=== PATIENT | female | born 1965 | race Caucasian/White ===

== ENCOUNTER → 2024-03-11 10:16 | Outpatient (REF) | payer OTHER, SELFPAY | LOC: RAD 10:16 | PROVIDERS: ATTENDING PHYSICIAN Family Medicine | DX: M25.562 Pain in left knee (principal) | CPT/HCPCS: 73564; 73590 ==

== ENCOUNTER → 2024-07-22 12:04 | Outpatient (REF) | payer OTHER, SELFPAY | LOC: WDC 12:04 | PROVIDERS: ATTENDING PHYSICIAN Nurse Practitioner Adult Health; FAMILY PHYSICIAN Family Medicine | DX: Z12.31 Encounter for screening mammogram for malignant neoplasm of breast (principal) | CPT/HCPCS: 77063; 77067 ==

== ENCOUNTER 2024-07-22 12:23 | Emergency (ER) | payer OTHER, SELFPAY ==
[2024-07-22] VITALS (9 sets, daily range): BP systolic 132–164; BP diastolic 77–96; PULSE 76–97; BMI 36.0
--- NOTE | 2024-07-22 12:44 | ED.GENMED ---
History of Present Illness
<Georgina Small PA-C - Last Filed: 07/22/24 20:59>
General
Chief Complaint: Dizziness
Source: patient
Exam Limitations: none
Time Seen by Provider: 07/22/24 12:41
Nursing documentation reviewed up to this point in time: agreed with
History of Present Illness
History of Present Illness:
This is a 58-year-old female with a past medical history of anxiety previously on Pristiq presents emergency department today with concerns of dizziness, lightheadedness. This started yesterday. Patient states that she was walking around her house
when the symptoms started. Patient states that she went to sit down and the symptoms resolved slowly on their own. Patient states that sometimes the symptoms do come on when she is sitting as well but notices the symptoms more when she walks. She
is unable to identify trigger to her symptoms. She denies any recent head or neck trauma. Denies any headaches or neck pain. She states that a few months ago she had something similar which resolved on its own and only lasted a day. She also
notes intermittent left-sided chest pain for the past few days. Denies any shortness of breath. Denies dysphagia, dysarthria,diplopia. Denies any fevers or chills or any sick contacts. Denies any visual changes. Denies any pain or swelling in her
legs, any rectal bleeding, any dark or tarry stools. Patient's not take a blood thinner. Patient is no history of cardiac disease. Patient states that she was going to her mammogram at the hospital today and noticed her symptoms again and decided
to report to the emergency department for further evaluation.
Past History
<Georgina Small PA-C - Last Filed: 07/22/24 20:59>
Past History
ED Past Medical History: Psychiatric (Anxiety) and Other (Cellulitis, )
ED Past Surgical History: Cholecystectomy and Orthopedic (Left knee replacement, tendonitis right wrist)
Social History
Tobacco: Former smoker
Alcohol: Occasional
Drug: None
Personal:
Living: alone
Employment: Employed
Family History
Family History: Hypertension; Negative Sudden
Review of Systems
<Georgina Small PA-C - Last Filed: 07/22/24 20:59>
Review of Systems
All Other Systems: ROS reviewed and negative except as documented in HPI and ROS
Phy Exam
<Georgina Small PA-C - Last Filed: 07/22/24 20:59>
Physical Exam
Physical Exam:
General: Patient is well appearing and in no acute distress; non-toxic
Skin: Warm and dry, no rashes or lesions
Head: Normocephalic, atraumatic
Eyes: Sclera non-icteric. EOMs intact. No nystagmus.
Cardiac: Regular rate and rhythm, no murmurs
Peripheral Vascular: No lower extremity swelling or edema. 2+ radial pulses bilaterally
Pulm: Normal respiratory effort, no wheezes, rales, or rhonchi
Neuro: CN II-XII intact, no focal neurologic deficits. Normal finger to nose, heel to mcintyre.
Psychiatric: Appropriate mood and affect.
Course
<Georgina Small PA-C - Last Filed: 07/22/24 20:59>
Orders/Labs/Results
Orders:
Orders
07/22/24 12:28
EKG [Electrocardiogram (*1)] Urgent
Reason for Study: Chest Pain
EKG- Treatment ONCE
07/22/24 12:42
Cardiac Monitoring- Treatment ONCE
IV Insert/Care/Rem.- Treatment PRN
07/22/24 13:04
Complete Blood Count/With Diff Urgent
Comprehensive Metabolic Panel Urgent
Troponin I Urgent
07/22/24 13:10
Orthostatic VS- Treatment ONCE
0.9% Sodium Chloride 500 ml [Nss] 500 ml IV BOLUS
07/22/24 13:12
CR Chest - 2 Views Urgent
Comment:
Reason For Exam: left sided chest pain
Abnormal Lab Results
07/22/24
13:04
BUN 26 H mg/dl
(7-17)
Glucose 106 H mg/dl
(70-99)
07/22/24 13:04
07/22/24 13:04
Vital Signs
Initial and Last Documented VS:
Initial Vital Signs
Temp Pulse Resp BP Pulse Ox
98.3 F 113 16 164/96 98
07/22/24 12:26 07/22/24 12:26 07/22/24 12:26 07/22/24 12:26 07/22/24 12:26
Last Documented Vital Signs
Temp Pulse Resp BP Pulse Ox
98.3 F 78 17 139/92 96
07/22/24 12:26 07/22/24 15:45 07/22/24 15:45 07/22/24 15:00 07/22/24 15:45
<Ahsan Stoll, DO - Last Filed: 07/22/24 14:44>
Orders/Labs/Results
Orders:
Orders
07/22/24 12:28
EKG [Electrocardiogram (*1)] Urgent
Reason for Study: Chest Pain
EKG- Treatment ONCE
07/22/24 12:42
Cardiac Monitoring- Treatment ONCE
IV Insert/Care/Rem.- Treatment PRN
07/22/24 13:04
Complete Blood Count/With Diff Urgent
Comprehensive Metabolic Panel Urgent
Troponin I Urgent
07/22/24 13:10
Orthostatic VS- Treatment ONCE
0.9% Sodium Chloride 500 ml [Nss] 500 ml IV BOLUS
07/22/24 13:12
CR Chest - 2 Views Urgent
Comment:
Reason For Exam: left sided chest pain
Abnormal Lab Results
07/22/24
13:04
BUN 26 H mg/dl
(7-17)
Glucose 106 H mg/dl
(70-99)
07/22/24 13:04
07/22/24 13:04
Vital Signs
Initial and Last Documented VS:
Initial Vital Signs
Temp Pulse Resp BP Pulse Ox
98.3 F 113 16 164/96 98
07/22/24 12:26 07/22/24 12:26 07/22/24 12:26 07/22/24 12:26 07/22/24 12:26
Last Documented Vital Signs
Temp Pulse Resp BP Pulse Ox
98.3 F 78 17 139/92 96
07/22/24 12:26 07/22/24 15:45 07/22/24 15:45 07/22/24 15:00 07/22/24 15:45
[place];Georgina Small PA-C - Last Filed: 07/22/24 20:59>
MDM/Problems Addressed
Differential Diagnosis Includes:
orthostatic hypertension, anemia, electrolyte derangement, ACS, BPPV, dysrhythmia, anxiety
MDM/Problems Addressed:
58 y/o female presents to the emergency department today with concerns of dizziness and lightheadedness starting spontaneously yesterday with no clear trigger. The symptoms come and go. Also notes transient atypical left sided chest pain. Currently
she is asymptomatic and feels like her normal self. She had something similar occur a few months ago which resolved on its own without intervention. On physical exam she is well appearing, in no acute distress, and her vitals are stable. Heart RRR
no murmurs, no focal neurologic deficits, no nystagmus. Will send off labs, EKG, orthostatic vitals, CXR, trop and will reassess.
On reassessment, patient remains asymptomatic. Her vital signs remained stable. Patient had negative orthostatic vital signs, she not feel dizzy or symptomatic at this time. She is given IV fluids. On physical exam her tachycardia resolved
without intervention. Do not suspect PE as patient is not short of breath is not tachycardic has no PE risk factors, do not think patient needs a JESE at this time. Of note, patient states that she did recently stop her anxiety medication and
states that she does feel anxious from time to time. Her chest x-ray was clear her CBC CMP were unremarkable and her troponin was undetectable. Considering patient's chest pains been on and off and patient has been without chest pain for multiple
hours, do not feel we need to repeat troponin at this time. Advised patient to follow-up with cardiology to get an assessment to get further testing done. Patient stable for discharge, advised follow-up with primary care provider.
Chronic conditions affecting care:
anxiety
<Georigna Small PA-C - Last Filed: 07/22/24 20:59>
*Pulse Oximetry
Patient hypoxic: no
*EKG
Interpreted by ED Provider?: Yes
Interpretation: abnormal
Comparison EKG: no changes
Heart Rate: 102
Rate: bradycardiac
Rhythm: sinus
Interval: normal interval
*Critical Care Note
Total Time (30-74mins, 75-104mins- exclusive of procedures): Not Applicable
Data Reviewed
Review of Other/Old Records Reveals: Records (reviewed ER documentation from 12/07/22, 06/28/17) and Discharge Summary (reviewed discharge summary from 12/09/22, patient seen for acute dvierticulitis)
Source: patient and records
<Georgina Small PA-C - Last Filed: 07/22/24 20:59>
Patient Management
Escalation/DeEscalation of care consider admission/obs:
admit not indicated
patient stable for discharge
ED Attending Note
<ROBERT Steven Last Filed: 07/22/24 20:59>
-
Portions of this chart may have been created with voice recognition software.� Occasional wrong word or��sound alike� substitutions may have occurred due to the inherent limitations of voice recognition software.
<Ahsan Stoll DO - Last Filed: 07/22/24 14:44>
ED Attending Note
Patient seen and examined by attending physician: Yes
I performed the substantive portion of visit, reviewed & personally made and approve the management plan that is documented in note by myself or TITI.: Yes
ED Attending Note:
Seen with PA examined independently 58-year-old female dizziness, intermittently was getting a mammogram today thought she would come over to get checked out mentally she is felt anxious related to the mammogram, here initially tachycardic is
normalized, she has some reproducible anterior left or right chest pain, no shortness of breath, no fevers,
Discharge Plan
Departure
Patient Disposition: Home (Routine Discharge)
Date of Disposition: 07/22/24
Time of Disposition: 15:27
Patient with high blood pressure during this ER visit?: Yes
Condition: Good
Discharge Problem:
Episodic lightheadedness, Chest pain
Instructions: Dizziness in adults - ED discharge instructions, Chest Pain
Prescriptions:
No Action
desvenlafaxine succinate [Pristiq] 50 MG tablet extended release 24 hr
50 mg PO DAILY
therapeutic multivitamin Tablet
1 tab PO DAILY
ciprofloxacin HCl [Cipro] 500 mg tablet
500 mg PO BID 6 Days Qty: 12 0RF
metronidazole 500 mg tablet
500 mg PO TID 6 Days Qty: 18 0RF
Referrals:
Christi Chow DO [Family Provider] -
Panfilo Coburn MD [Active] - Call in 1-3 days for appt
Activity Restrictions/Additional Instructions:
Please call the attached number to schedule an appointment to see cardiology.
Your EKG did not show an abnormal rhythm. Your troponin was undetectable.
PLEASE RETURN TO THE EMERGENCY DEPARTMENT SHOULD YOU EXPERIENCE AN ACUTE WORSENING OF YOUR SYMPTOMS, SYNCOPAL EPISODES, VISION LOSS, SHORTNESS OF BREATH, PALPITATIONS, OR ANY OTHER SIGNS OR SYMPTOMS WORRISOME TO YOU.
Interventions
Interventions:
*Risk Screen - Suicide Last Done: 07/22/24 12:26
*General Assessment Last Done: 07/22/24 13:08
*Neglect/Abuse Screening Last Done: 07/22/24 12:26
ED- Fall Risk Assessment Last Done: 07/22/24 13:08
*ED COVID-19 Vaccine History Last Done: 07/22/24 13:08
*Nursing Disposition Last Done: 07/22/24 15:55
ED- Neurological Assessment Last Done: 07/22/24 13:08
ED- Cardiac Assessment Last Done: 07/22/24 13:08
ED Swallowing Screen Last Done: 07/22/24 13:13
Discharge Date and Time
Discharge Date/Time: 07/22/24 15:55
Print Language: ANGOLAN
--- NOTE | 2024-07-22 13:05 | EDRN ---
Eben CASPER in room w/ pt at this time.
[2024-07-22 13:23] LABS: % Basophils 0.4 % (0-2); % Immature Granulocytes 0.3 % (0-0.5); % Lymphocytes 26.5 % (20.5-51.1); % Monocytes 5.9 % (1.7-9.3); % Neutrophils 65.9 % (42.2-75.2); Absolute Eosinophils 0.1 10^3/uL (0-0.7); Absolute Monocytes 0.5 10^3/uL (0.1-0.6); Hematocrit 41.8 % (37.0-47.0); Hemoglobin 14.5 g/dL (12.0-16.0); Mean Corp Hgb Conc. 34.7 g/dL (33.0-37.0); Mean Corpuscular Hgb 30.7 pg (27.0-31.0); Mean Corpuscular Volume 88.6 fL (81.0-99.0); Mean Platelet Volume 9.3 fL (7.4-10.4); Nucleated Red Blood Cells % 0 %; Platelet Count 260 10^3/uL (130-400); Red Blood Cell Count 4.72 10^6/uL (4.20-5.40); Red Cell Dist. Width 12.6 % (11.5-14.5); White Blood Cell Count 7.6 10^3/uL (4.8-10.8)
[2024-07-22 13:29] LABS: ALT (SGPT) 18 U/L (0-35); AST (SGOT) 22 U/L (14-36); Albumin 4.2 g/dl (3.5-5.0); Alkaline Phosphatase 109 U/L (38-126); Blood Urea Nitrogen 26 mg/dl (7-17); Carbon Dioxide 24 mmol/L (22-30); Chloride 107 mmol/L (98-107); Estimated Creatinine Clearance 84 ml/min; Glucose 106 mg/dl (70-99); Potassium 4.4 mmol/L (3.5-5.1); Sodium 138 mmol/L (135-145); Total Bilirubin 0.5 mg/dl (0.2-1.3); eGFR > 60.00
[2024-07-22 13:37] LABS: Troponin I < 0.012 ng/ml
[2024-07-22] MEDS: NSS 500 IV (14:32)
== END 2024-07-22 15:55 | disposition home or self-care (01) ==
LOC: EMR 12:23
PROVIDERS: Physician Assistant; EMERGENCY PHYSICIAN Emergency Medicine; FAMILY PHYSICIAN Family Medicine
DX: R42 Dizziness and giddiness (principal); R07.89 Other chest pain; F41.9 Anxiety disorder, unspecified; Z87.891 Personal history of nicotine dependence; Z90.49 Acquired absence of other specified parts of digestive tract
CPT/HCPCS: 99285; 71046; 80053; 84484; 85025; 93005

== ENCOUNTER → 2024-09-07 10:50 | Outpatient (REF) | payer OTHER, SELFPAY ==
[2024-09-07 12:06] LABS: % Basophils 0.4 % (0-2); % Eosinophils 1.1 % (0-6); % Immature Granulocytes 0.5 % (0-0.5); % Lymphocytes 25.1 % (20.5-51.1); % Monocytes 5.1 % (1.7-9.3); % Neutrophils 67.8 % (42.2-75.2); Absolute Eosinophils 0.1 10^3/uL (0-0.7); Absolute Monocytes 0.4 10^3/uL (0.1-0.6); Absolute Neutrophils 5.3 10^3/uL (1.4-6.5); Hematocrit 42.5 % (37.0-47.0); Hemoglobin 14.5 g/dL (12.0-16.0); Mean Corp Hgb Conc. 34.1 g/dL (33.0-37.0); Mean Corpuscular Hgb 30.7 pg (27.0-31.0); Mean Platelet Volume 9.3 fL (7.4-10.4); Nucleated Red Blood Cells % 0 %; Platelet Count 314 10^3/uL (130-400); Red Blood Cell Count 4.72 10^6/uL (4.20-5.40); Red Cell Dist. Width 12.7 % (11.5-14.5); White Blood Cell Count 7.9 10^3/uL (4.8-10.8)
[2024-09-07 12:29] LABS: ALT (SGPT) 18 U/L (0-35); AST (SGOT) 20 U/L (14-36); Albumin 4.9 g/dl (3.5-5.0); Alkaline Phosphatase 126 U/L (38-126); Blood Urea Nitrogen 20 mg/dl (7-17); Calcium 10.5 mg/dl (8.4-10.2); Carbon Dioxide 23 mmol/L (22-30); Chloride 109 mmol/L (98-107); Glucose 113 mg/dl (70-99); Potassium 4.6 mmol/L (3.5-5.1); Sodium 143 mmol/L (135-145); Total Bilirubin 0.5 mg/dl (0.2-1.3); Total Protein 7.4 g/dl (6.3-8.2); eGFR > 60.00
== END ==
LOC: RAD 10:50
PROVIDERS: ATTENDING PHYSICIAN Physician Assistant Medical; FAMILY PHYSICIAN Family Medicine
DX: R19.8 Other specified symptoms and signs involving the digestive system and abdomen (principal); R14.2 Eructation; R06.89 Other abnormalities of breathing
CPT/HCPCS: 36415; 74177; 80053; 85025; Q9967

== ENCOUNTER → 2024-09-22 15:47 | Outpatient (REF) | payer OTHER, SELFPAY | LOC: RCS 15:47 | PROVIDERS: ATTENDING PHYSICIAN Internal Medicine Cardiovascular Disease; FAMILY PHYSICIAN Family Medicine | DX: R42 Dizziness and giddiness (principal) | CPT/HCPCS: 93306 ==

== ENCOUNTER → 2024-11-12 09:22 | Outpatient (REF) | payer OTHER, SELFPAY | LOC: HWRAD 09:22 | PROVIDERS: ATTENDING PHYSICIAN Family Medicine | DX: Z87.891 Personal history of nicotine dependence (principal) | CPT/HCPCS: 71271 ==